=== PATIENT | female | born 1990 | race Caucasian/White ===

== ENCOUNTER → 2018-07-14 | Outpatient (CLI) | payer OTHER ==
[~2018-07-14] MED LIST: ALBIPROI; ALLER-TEC D 5-1 EACH; AMOX500; BUDE200IP IH; BUPR75 PO; CEPH500 PO; ESCI5 PO; FEXO180; FEXPSEER PO; FLUSAL2505; HYDACE5 PO; Iron Supplemen325 MG PO; MONT10T; OMNARIS; RHINOCORT; RXCLIN PO; RXHYDACE PO; SERT50; SERT50 PO; SULTRIDS PO; VENL75ER PO
== END | disposition home or self-care (01) ==
LOC: LAB SHORT 10:11 → PLD 10:11
DX: D22.5 Melanocytic nevi of trunk (principal)
CPT/HCPCS: 88305

== ENCOUNTER → 2019-07-14 | Outpatient (CLI) | payer OTHER | END | disposition home or self-care (01) | LOC: LAB SHORT 11:25 → PLD 11:25 | DX: D22.4 Melanocytic nevi of scalp and neck (principal) | CPT/HCPCS: 88305 ==

== ENCOUNTER → 2020-07-11 | Outpatient (CLI) | payer OTHER | END | disposition home or self-care (01) | LOC: LAB SHORT 11:01 → PLD 11:01 | DX: D22.5 Melanocytic nevi of trunk (principal) | CPT/HCPCS: 88305 ==

== ENCOUNTER 2023-04-25 12:04 | Observation (INO) | payer OTHER ==
[~2023-04-25] VITALS: Ht 170.2 cm; Wt 92.5 kg
[~2023-04-25 12:04] MED LIST changes: +ONDA4ODT SL
[2023-04-25 13:07] LABS: BASOPHILS ABSOLUTE AUTO 0.09 K/mm3 (0.00-0.23); BASOPHILS PERCENT AUTO 1 % (0-2); EOSINOPHILS ABSOLUTE AUTO 0.44 K/mm3 (0.00-0.68); EOSINOPHILS PERCENT AUTO 2 % (0-6); Hematocrit 40.4 % (33.0-51.0); Hemoglobin 13.7 g/dL (11.5-16.0); IMMATURE GRAN ABSOLUTE AUTO 0.16 K/mm3 (0.00-0.10); IMMATURE GRAN PERCENT AUTO 1 % (0-1); LYMPHOCYTES ABSOLUTE AUTO 2.45 K/mm3 (0.84-5.20); LYMPHOCYTES PERCENT AUTO 14 % (21-46); MONOCYTES ABSOLUTE AUTO 1.14 K/mm3 (0.16-1.47); MONOCYTES PERCENT AUTO 6 % (4-13); Mean Corpuscular HGB 29.4 pg (26.0-34.0); Mean Corpuscular HGB Conc 33.9 g/dL (31.5-36.5); Mean Corpuscular Volume 87 fL (80-100); Mean Platelet Volume 9.5 fL (9.1-12.4); NEUTROPHILS ABSOLUTE AUTO 13.92 K/mm3 (1.96-9.15); NEUTROPHILS PERCENT AUTO 76 % (41-73); Platelet Count 475 K/mm3 (150-400); RDW Coefficient Variation 11.9 % (11.7-14.2); Red Blood Cell Count 4.66 M/mm3 (3.80-5.20)
[2023-04-25 13:21] LABS: Source, Urine Clean Catch
[2023-04-25 13:26] LABS: Appearance, Urine Clear (Clear); Bilirubin, Urine Neg (Neg); Blood, Urine Neg (Neg); Color, Urine Amber (P-Yellow); Glucose Qualitative, Urine Neg (Neg); Ketones, Urine 3+ (Neg); Leukocyte Esterase, Urine 1+ (Neg); Nitrite, Urine Neg (Neg); Protein, Urine 3+ (Neg); Specific Gravity, Urine 1.015 (1.003-1.022); Urobilinogen, Urine NORM (Normal); pH, Urine 6.5 (5.0-8.0)
[2023-04-25 13:30] LABS: Albumin, Blood 3.5 g/dL (3.4-5.0); Albumin/Globulin Ratio 0.6 (0.8-1.8); Bilirubin, Total 0.9 mg/dL (0.1-1.0); Bun/Creatinine Ratio 13.9 (12.0-20.0); Calcium, Blood 9.3 mg/dL (8.5-10.1); Creatinine, Blood 0.65 mg/dL (0.40-1.00); Globulin, Blood 5.6 g/dL (2.2-4.0); Total Protein, Blood 9.1 g/dL (6.4-8.2)
[2023-04-25 13:40] LABS: Bacteria Mod /hpf; Mucus Light (0-Heavy); Red Blood Cells, Urine Not Seen /hpf (0-2); Squamous Epithelial Cells Rare /hpf (Few)
[2023-04-25] MEDS ORDERED: OMEP20ER PO (15:36)
[2023-04-25] MEDS ORDERED: MULVITA PO (15:36)
[2023-04-25] MEDS ORDERED: NASACORT10.8 ML NS (15:37)
[2023-04-25] MEDS ORDERED: ZYRTEC10 M2 PO (15:40)
[2023-04-25] MEDS ORDERED: Flovent 44 mc10.6 GM INH (15:43)
[2023-04-25] MEDS ORDERED: Avita20 G1 (15:44)
[2023-04-25] MEDS ORDERED: ALDACTONE100 MG PO (16:25)
[2023-04-25] MEDS ORDERED: QVAR REDIHALE10.6 G3 PO (16:25)
[2023-04-25] MEDS ORDERED: BIRTH CONTROL (16:26)
[2023-04-25] MEDS ORDERED: AVITA TP (16:27)
[2023-04-25 17:20] VITALS: BP 126/70
--- NOTE | 2023-04-25 19:18 | NUR ---
SHIFT SUMMARY S/P ACUTE DEANNE, A/OX4, VSS, TOLERATING PO, ADMISSION COMPLETED, PLAN FOR OR IN THE AM. NO ACUTE EVENTS THIS SHIFT, CALL LIGHT IN REACH.
[2023-04-25 20:11] VITALS: BP 120/71
[2023-04-26] VITALS (16 sets, daily range): BP systolic 119–149; BP diastolic 68–102
--- NOTE | 2023-04-26 04:39 | NUR ---
SHIFT SUMMARY NO ACUTE CHANGES OVERNIGHT. VSS. NPO SINCE MIDNIGHT, AWAITING CHOLEY SURGERY IN AM. AMBULATES INDEPENDENTLY IN ROOM. MOTHER STAYED WITH PT OVERNIGHT. CALL LIGHT WITHIN REACH, BED IN LOWEST POSITION, WILL REPORT TO DAY RN.
[2023-04-26 04:42] LABS: BASOPHILS ABSOLUTE AUTO 0.06 K/mm3 (0.00-0.23); BASOPHILS PERCENT AUTO 1 % (0-2); EOSINOPHILS ABSOLUTE AUTO 0.68 K/mm3 (0.00-0.68); EOSINOPHILS PERCENT AUTO 6 % (0-6); Hematocrit 35.2 % (33.0-51.0); Hemoglobin 11.6 g/dL (11.5-16.0); IMMATURE GRAN ABSOLUTE AUTO 0.13 K/mm3 (0.00-0.10); IMMATURE GRAN PERCENT AUTO 1 % (0-1); LYMPHOCYTES ABSOLUTE AUTO 1.83 K/mm3 (0.84-5.20); LYMPHOCYTES PERCENT AUTO 17 % (21-46); MONOCYTES PERCENT AUTO 7 % (4-13); Mean Corpuscular Volume 88 fL (80-100); Mean Platelet Volume 9.6 fL (9.1-12.4); NEUTROPHILS ABSOLUTE AUTO 7.44 K/mm3 (1.96-9.15); NEUTROPHILS PERCENT AUTO 68 % (41-73); Platelet Count 380 K/mm3 (150-400); RDW Coefficient Variation 11.9 % (11.7-14.2); RDW Standard Deviation 38.4 fL (35.1-46.3); White Blood Cell Count 10.94 K/mm3 (4.00-11.30)
[2023-04-26 05:22] LABS: Albumin, Blood 2.8 g/dL (3.4-5.0); Albumin/Globulin Ratio 0.6 (0.8-1.8); Bilirubin, Total 0.7 mg/dL (0.1-1.0); Bun/Creatinine Ratio 8.5 (12.0-20.0); Calcium, Blood 8.9 mg/dL (8.5-10.1); Creatinine, Blood 0.7 mg/dL (0.40-1.00); Globulin, Blood 4.9 g/dL (2.2-4.0); Potassium, Blood 3.8 mmol/L (3.5-5.5); Total Protein, Blood 7.7 g/dL (6.4-8.2)
--- NOTE | 2023-04-26 11:42 | NUR ---
PT HAS 20G IV TO LEFT AC THAT FLUSHES WELL AND FLOWS TO GRAVITY.
--- NOTE | 2023-04-26 13:32 | NUR ---
ADDITIONAL VERSED NOT NEEDED.
--- NOTE | 2023-04-26 14:08 | NUR ---
04/26/23 1408 Sandie Vick 2ND IV STARTED ON R WRIST AFTER INTUBATION
--- NOTE | 2023-04-26 19:21 | NUR ---
SHIFT SUMMARY PT POD 0 LAP DEANNE. LAP SITES X'S 4 W/DERMABOND C/D/I. PAIN WELL MANAGED WITH 1 NORCO. TOLERATING REGULAR DIET WITH NO N/V. PT UP SBA TO BATHROOM, VOIDED W/O DIFFICULTY. MOM AT BEDSIDE. PLAN TO CONTINUE IV ABX THROUGH NIGHT.
--- NOTE | 2023-04-26 20:46 | NUR ---
MED ERROR THIS RN NOTICED THAT PT RECEIVED WRONG 1800 DOSE OF ANTIBIOTIC THAT WAS ADMINISTERED BY GIGI ALEGRE. PT RECEIVED ANCEF VS SCHEDULED UNASYN DOSE. NO ADVERSE REACTIONS NOTED. DR. WHITE NOTIFIED. DR. WHITE T.O. TO DISCONTINUE UNASYN ABX. NO OTHER NEW ORDERS AT THIS TIME.
[2023-04-27 00:05] VITALS: BP 123/74
[2023-04-27 03:11] VITALS: BP 109/62
--- NOTE | 2023-04-27 04:24 | NUR ---
SHIFT SUMMARY S/P LAP DEANNE. NO ACUTE CHANGES. PT DOING WELL. 1 NORCO FOR PAIN MANAGEMENT. REPORTS FLATUS. CARMENCITA REG DIET. INDEP TO RESTROOM. LAP SITES TO ABD REMAIN CDI. PT EXPECTING TO DISCHARGE HOME. MOTHER AT BEDSIDE FOR SUPPORT. CALL LIGHT WITHIN REACH.
[2023-04-27 08:09] VITALS: BP 117/72
[2023-04-27] MEDS ORDERED: BUPR75 PO (11:49)
[2023-04-27] MEDS ORDERED: HYDR1TAB94 PO (11:50)
--- NOTE | 2023-04-27 13:14 | NUR ---
TOLERATED REGULAR BREAKFAST WELL, AMBULATED DOWN THE HALLS, REPORTS PASSING FLATUS, PT DC'D HOME, DC INSTRUCTIONS GIVEN, VERBALIZED UNDERSTANDING.
== END 2023-04-27 12:58 | disposition home or self-care (01) ==
LOC: ER 12:04 → SURS 12:05 → ER 15:28 → SURS 15:28
PROVIDERS: Physician Assistant; ADMIT Surgery
PROC: 0FT44ZZ Resection of Gallbladder, Percutaneous Endoscopic Approach (ICD-10-PCS; principal; 2023-04-26 13:00)
DX: K80.00 Calculus of gallbladder with acute cholecystitis without obstruction (principal); J45.909 Unspecified asthma, uncomplicated; Z72.0 Tobacco use
CPT/HCPCS: 36415; 74177; 74300; 80053; 81001; 81025; 83690; 85025; 87086; 88304; 94640; 94664; 94760; 96361; 96365-59; 96375; 99285-25; A9270; C1729; J0295; J1100; J1170; J2250; J2405; J2704; J3010; J7030; J7120; Q2036; Q9967